=== PATIENT | female | born 2005 | race Two or more races ===

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

== ENCOUNTER 2024-07-02 08:35 | Outpatient (CLI) | payer OTHER ==
[~2024-07-02 08:35] MED LIST: PEPCID AC20 MG PO
== END 2024-07-02 08:36 | disposition home or self-care (01) ==
LOC: PRENATAL 08:35
PROVIDERS: ATTEND Obstetrics & Gynecology Maternal & Fetal Medicine
DX: O35.3XX0 Maternal care for (suspected) damage to fetus from viral disease in mother, not applicable or unspecified (principal); O44.00 Complete placenta previa NOS or without hemorrhage, unspecified trimester; Z3A.20 20 weeks gestation of pregnancy

== ENCOUNTER → 2024-10-02 09:53 | Outpatient (CLI) | payer OTHER | END | disposition home or self-care (01) | LOC: PRENATAL 09:53 | PROVIDERS: ATTEND Obstetrics & Gynecology Maternal & Fetal Medicine | DX: O26.849 Uterine size-date discrepancy, unspecified trimester (principal); O36.8199 Decreased fetal movements, unspecified trimester, other fetus; O99.019 Anemia complicating pregnancy, unspecified trimester; Z3A.33 33 weeks gestation of pregnancy ==

== ENCOUNTER 2024-11-14 07:24 | Inpatient (IN) | payer OTHER ==
[2024-11-14] VITALS (9 sets, daily range): BP systolic 115–129; BP diastolic 62–75
[~2024-11-14] VITALS: Ht 165.1 cm; Wt 78.9 kg
[2024-11-14] MEDS ORDERED: PRENATAL CAPLE1 EAC1 PO (09:19)
[2024-11-14] MEDS ORDERED: RINGERS SOLUTION,LACTATED 1,000 ML IV SCH (09:30)
[2024-11-14 11:23] LABS: HEMOGLOBIN 11.5 g/dL (12.0-15.00); MEAN CELL VOLUME 86.4 fL (80.00-100.00); MEAN CORPUSCULAR HEMOGLOBIN 29.2 pg (27.00-32.0); MEAN CORPUSCULAR HGB CONC 33.8 g/dl (32.0-36.0); PH,URINE 7.5 (5.0-8.0); PLATELET COUNT 131 K/uL (150-450); RED BLOOD COUNT 3.93 M/uL (4.00-6.00); RED CELL DISTRIBUTION WIDTH 14.9 % (11.5-14.5); URINE APPEARANCE Clear; URINE BILIRRUBIN Negative (NEGATIVE); URINE BLOOD Negative; URINE COLOR Yellow; URINE GLUCOSE Negative (NEGATIVE); URINE KETONE Negative (NEGATIVE); URINE LEUKOCYTE Negative; URINE NITRATE Negative; URINE PROTEIN Negative (NEGATIVE); URINE UROBILINOGEN 0.2 E.U./dl
[2024-11-14 11:25] LABS: URINE EPITHELIAL CELLS 29.3 uL (0.0-38.8)
[2024-11-14 11:42] LABS: INR < 0.93; PARTIAL THROMBOPLASTIN TIME 26.3 SECONDS (22.0-34.0); PROTHROMBIN TIME 10.1 SECONDS (9.0-11.5)
[2024-11-14] MEDS ORDERED: OXYTOCIN 20 UNITS/500ML RL PIGGYBAG IV ONE (11:58)
[2024-11-14] MEDS ORDERED: OXYTOCIN 500 ML IV SCH (12:00)
[2024-11-14] MEDS ORDERED: OXYTOCIN 20 UNITS/500ML RL PIGGYBAG IV SCH (12:00)
[2024-11-14 13:50] LABS: URINE RBC 0.8 uL (0.0-20.8)
[2024-11-14] MEDS ORDERED: OXYTOCIN 20 UNITS/1000ML RL PIGGYBAG IV ONE (19:13)
[2024-11-14] MEDS ORDERED: LIDOCAINE HCL 1% 10ML VIAL ONE (19:13)
[2024-11-14] MEDS ORDERED: ERYTHROMYCIN BASE OPHT 1GM EACH TUBE OP ONE ×2 (19:13→21:15)
[2024-11-14] MEDS ORDERED: CHLORHEXIDINE GLUCONATE 120 ML BOTTLE TOP ONE (19:13)
[2024-11-14] MEDS ORDERED: OXYTOCIN 1,000 ML IV SCH (20:00)
[2024-11-14] MEDS ORDERED: ACETAMINOPHEN 500 MG GEL..CAP PO PRN (20:00)
[2024-11-14] MEDS ORDERED: CHLORHEXIDINE GLUCONATE 120 ML BOTTLE TOP SCH (20:00)
[2024-11-14] MEDS ORDERED: LIDOCAINE HCL 1% 10ML VIAL IJ ONE (21:15)
[2024-11-15 00:28] LABS: HEMATOCRIT 34.5 % (36.0-45.00); MEAN CELL VOLUME 87.7 fL (80.00-100.00); MEAN CORPUSCULAR HEMOGLOBIN 28.9 pg (27.00-32.0); MEAN CORPUSCULAR HGB CONC 32.9 g/dl (32.0-36.0); RED BLOOD COUNT 3.94 M/uL (4.00-6.00); RED CELL DISTRIBUTION WIDTH 14.6 % (11.5-14.5)
[2024-11-15 00:35] LABS: HEMOGLOBIN 11.4 g/dL (12.0-15.00); PLATELET COUNT 126 K/uL (150-450)
[2024-11-15 01:58] VITALS: BP 111/64
[2024-11-15 08:07] VITALS: BP 111/73
[2024-11-15] MEDS ORDERED: PNV,CALCIUM 72/IRON/FOLIC ACID 1 TAB TABLET PO SCH (09:00)
[2024-11-15 16:00] VITALS: BP 123/82
[2024-11-15 20:00] VITALS: BP 119/78
[2024-11-16] VITALS: BP 108/72
[2024-11-16 08:00] VITALS: BP 114/81
== END 2024-11-16 17:07 | disposition home or self-care (01) | DRG 807 ==
LOC: LDR 07:24 → OB/GYN 20:49
PROVIDERS: ADMIT Obstetrics & Gynecology; ATTEND Obstetrics & Gynecology
PROC: 10E0XZZ Delivery of Products of Conception, External Approach (ICD-10-PCS; principal; 2024-11-14)
PROC: 4A1HXCZ Monitoring of Products of Conception, Cardiac Rate, External Approach (ICD-10-PCS; 2024-11-14)
DX: O80 Encounter for full-term uncomplicated delivery (principal); Z37.0 Single live birth; Z3A.39 39 weeks gestation of pregnancy